=== PATIENT | male | born 1995 | race Caucasian/White ===

== ENCOUNTER 2019-01-11 20:02 | Emergency (ER) | payer OTHER ==
--- NOTE | 2019-01-11 20:18 | EDM.PDOC ---
ED HPI GENERAL MEDICAL PROBLEM - General Chief Complaint: Head Injury Stated Complaint: PT HURT HEAD Time Seen by Provider: 01/11/19 20:09 - History of Present Illness INITIAL COMMENTS - FREE TEXT/NARRATIVE: HISTORY AND PHYSICAL: History of present illness: Patient's 23-year-old male presents status post head injury in which he hit his frontal scalp sustained a laceration there is no loss consciousness no nausea no vomiting no neck pain or trauma concern he is up-to-date on his tetanus Review of systems: As per history of present illness and below otherwise all systems reviewed and negative. Past medical history: As per history of present illness and as reviewed below otherwise noncontributory. Surgical history: As per history of present illness and as reviewed below otherwise noncontributory. Social history: No reported history of drug or alcohol abuse. Family history: As per history of present illness and as reviewed below otherwise noncontributory. Physical exam: HEENT: Patient is approximately 2.5 cm keisha the laceration of his frontal scalp with no step-off no depression good hemostasis normocephalic, pupils reactive, negative for conjunctival pallor or scleral icterus, mucous membranes moist, throat clear, neck supple, nontender, trachea midline. Lungs: Clear to auscultation, breath sounds equal bilaterally, chest nontender. Heart: S1S2, regular, negative for clicks, rubs, or JVD. Abdomen: Soft, nondistended, nontender. Negative for masses or hepatosplenomegaly. Negative for costovertebral tenderness. Pelvis: Stable nontender. Genitourinary: Deferred. Rectal: Deferred. Extremities: Atraumatic, negative for cords or calf pain. Neurovascular unremarkable. Neuro: Awake, alert, oriented. Cranial nerves II through XII unremarkable. Cerebellum unremarkable. Motor and sensory unremarkable throughout. Exam nonfocal. Diagnostics: None Therapeutics: Patient was irrigated gaurav with 0.9 normal saline with a sepsis had his wound closed with stainless steel Fazal bacitracin was applied Impression: #1 minor head injury with scalp laceration Definitive disposition and diagnosis as appropriate pending reevaluation and review of above. headache Pain Score (Numeric/FACES): 2 - Related Data Allergies Allergy/AdvReac Type Severity Reaction Status Date / Time No Known Allergies Allergy Verified 01/11/19 20:10 Home Meds: Home Meds . [No Known Home Meds] 01/11/19 [History] ED ROS GENERAL - Review of Systems Review Of Systems: ROS reveals no pertinent complaints other than HPI. ED EXAM, HEAD INJURY - Physical Exam Exam: See Below (Dictation) Course - Vital Signs Last Recorded V/S: Last Vital Signs Temp 36.9 C 01/11/19 20:11 Pulse 86 01/11/19 20:11 Resp 14 01/11/19 20:11 BP 114/60 01/11/19 20:11 Pulse Ox 98 01/11/19 20:11 Departure - Departure Time of Disposition: 20:16 Disposition: Home, Self-Care 01 Condition: Good Clinical Impression: Minor head injury, Scalp laceration - Discharge Information Referrals: Jose Luis Bejarano MD [Primary Care Provider] - Additional Instructions: The following information is given to patients seen in the emergency department who are being discharged to home. This information is to outline your options for follow-up care. We provide all patients seen in our emergency department with a follow-up referral. The need for follow-up, as well as the timing and circumstances, are variable depending upon the specifics of your emergency department visit. If you don't have a primary care physician on staff, we will provide you with a referral. We always advise you to contact your personal physician following an emergency department visit to inform them of the circumstance of the visit and for follow-up with them and/or the need for any referrals to a consulting specialist. The emergency department will also refer you to a specialist when appropriate. This referral assures that you have the opportunity for followup care with a specialist. All of these measure are taken in an effort to provide you with optimal care, which includes your followup. Under all circumstances we always encourage you to contact your private physician who remains a resource for coordinating your care. When calling for followup care, please make the office aware that this follow-up is from your recent emergency room visit. If for any reason you are refused follow-up, please contact the [facility] emergency department at and asked to speak to the emergency department charge nurse. Wound care as discussed staple removal 10-14 days return as needed as discussed
[2019-01-11] MEDS ORDERED: Bacitracin Oint 1 GM U/D Packet TOP ONE (20:20)
== END 2019-01-11 20:34 | disposition home or self-care (01) ==
LOC: MW.ED 20:02
DX: S01.01XA Laceration without foreign body of scalp, initial encounter (principal); W22.8XXA Striking against or struck by other objects, initial encounter
CPT/HCPCS: 12001; 99282

== ENCOUNTER 2019-01-28 19:28 | Emergency (ER) | payer OTHER | END 2019-01-28 19:35 | disposition left against medical advice (07) | LOC: MW.ED 19:28 | DX: Z53.21 Procedure and treatment not carried out due to patient leaving prior to being seen by health care provider (principal) ==

== ENCOUNTER 2020-05-27 10:18 | Emergency (ER) | payer BC, OTHER ==
[2020-05-27] MEDS ORDERED: Ketorolac 15 MG/ML SDV IM ONE (10:47)
[2020-05-27] MEDS ORDERED: Amoxicillin/Clavulanate K 875-125 MG Tab PO ONE (10:48)
[2020-05-27] MEDS ORDERED: Benzocaine 20% Topical Spray UD MUCMEM ONE (10:51)
[2020-05-27] MEDS ORDERED: Lidocaine 2% Viscous Solution 15 ML Cup PO ONE (10:51)
--- NOTE | 2020-05-27 10:51 | EDM.PDOC ---
ED HPI GENERAL MEDICAL PROBLEM - General Chief Complaint: ENT Problem Stated Complaint: SWELLING/TOOTH PAIN Time Seen by Provider: 05/27/20 10:32 - History of Present Illness INITIAL COMMENTS - FREE TEXT/NARRATIVE: CHIEF COMPLAINT(S): Left tooth pain and jaw swelling HISTORY OF PRESENT ILLNESS: This is a 24-year-old man without any significant past medical history who comes to the emergency department with a chief complaint of left tooth pain and swelling. The patient states that he has a chipped tooth on the left inferior jaw which was tender. He states that over the last day he started noticed that his jaw and cheek started to swell. He denies any inability to open his jaw, trouble swallowing, throat pain, trouble breathing. He states that the pain was 8 out of 10 and that he tried Orajel which did not relieve it. He denies any radiation of this pain into his neck. He states that there is no relieving symptoms but that touching the tooth and the jaw seem to exacerbate the pain. He denies any fevers or chills. He denies any sore throat. REVIEW OF SYSTEMS: Constitutional: Denies fever, chills. Eyes: Denies eye pain Ears, Nose, Mouth, & Throat: Positive for tooth pain and jaw pain. Denies sore throat Skin:Denies a rash MSK: Positive for left calf pain neurological: Denies blurred vision headache, numbness, tingling, weakness PAST MEDICAL HISTORY: As per history of present illness and as reviewed below otherwise noncontributory. SURGICAL HISTORY: As per history of present illness and as reviewed below otherwise noncontributory. SOCIAL HISTORY: As per history of present illness and as reviewed below otherwise noncontributory. FAMILY HISTORY: As per history of present illness and as reviewed below otherwise noncontributory. EXAMINATION OF ORGAN SYSTEMS/BODY AREAS: Constitutional: Blood pressure was 132/94, heart rate 76, respiratory rate 16 with an oxygen saturation 98% on room air. Temperature 36.6 General: Overall well-appearing man who is in no acute distress. Psychiatric: Appropriate mood and affect. Eyes: No scleral icterus or conjunctival erythema ENMT: Moist mucous membranes. No pharyngeal erythema there is a dental carry in the left inferior molars in the posterior side. There is no obvious periapical abscess or gum erythema. There is tenderness to palpation along this tooth. Externally there is swelling in the buccal mucosa and tenderness to palpation a long the inferior jaw. There is no lymphadenopathy palpated. Uvula was midline. No stridor, trismus or drooling. Cardiovascular: Regular, rate, and rhythm. No gallops, murmurs, or rubs. Respiratory: Lungs clear to auscultation bilaterally. No wheezes, rales, or rhonchi. Skin: No lesions or abrasions. Neurological: Alert, GCS 15 MEDICAL DECISION MAKING AND COURSE IN THE ED WITH INTERPRETATION/REVIEW OF DIAGNOSTIC STUDIES: This is a 24-year-old man and without any significant past medical history who comes to the emergency department with dental pain who has evidence of dental caries with possible dental abscess versus swelling along the jaw and buccal mucosa secondary to inflammation from the dental carry. At this time I discussed with the patient that I could provide the patient with a Toradol shot here. We will provide the patient with Augmentin by mouth for antibiotics. I discussed that I be sending home home with antibiotic and that he needed to follow-up with dentistry this week. We did provide the patient with lidocaine balls for symptomatic relief. I also discussed with him that he could use [id number] Tylenol and Motrin and he could ice his jaw 20 minut es 4 times a day. He was amenable to discharge at this time and had no further questions. DISPOSITION: The patient was discharged home in stable condition. The patient will follow up with dentist this week CONDITION: Fair PROCEDURES: None FINAL IMPRESSION(S)/DIAGNOSES: 1. Acute dental abscess 2. Acute right jaw swelling likely secondary #1 Jaret Carr M.D. left lower tooth Pain Score (Numeric/FACES): 10 - Related Data Allergies Allergy/AdvReac Type Severity Reaction Status Date / Time No Known Allergies Allergy Verified 05/27/20 10:37 Home Meds: Home Meds Acetaminophen [Tylenol Extra Strength] 1,000 mg PO Q6HR #56 tablet 05/27/20 [Rx] Amoxicillin/Potassium Clav [Augmentin 875-125 Tablet] 1 each PO BID #14 tablet 05/27/20 [Rx] Ibuprofen 600 mg PO Q6HR #28 tablet 05/27/20 [Rx] Sertraline [Zoloft] 50 mg PO DAILY 05/27/20 [History] Past Medical History - Past Health History Medical/Surgical History: Denies Medical/Surgical History - Past Surgical History Other Musculoskeletal Surgeries/Procedures:: hx R hand splinted Social & Family History - Family History Family Medical History: No Pertinent Family History - Tobacco Use Tobacco Use Status *Q: Never Tobacco User - Recreational Drug Use Recreational Drug Use: No ED ROS GENERAL - Review of Systems Review Of Systems: See Below ED EXAM, GENERAL - Physical Exam Exam: See Below Course - Vital Signs Last Recorded V/S: Last Vital Signs Temp 36.6 C 05/27/20 10:35 Pulse 76 05/27/20 10:35 Resp 16 05/27/20 10:35 BP 132/94 H 05/27/20 10:35 Pulse Ox 98 05/27/20 10:35 - Orders/Labs/Meds Meds: Medications Discontinued Medications Generic Name Dose Route Start Last Admin Trade Name Freq PRN Reason Stop Dose Admin Amoxicillin/Clavulanate Potassium 1 tab 05/27/20 10:48 05/27/20 11:05 Augmentin 875 Mg/125 Mg PO 05/27/20 10:49 1 tab ONETIME ONE Administration Benzocaine 2 each 05/27/20 10:51 05/27/20 11:04 Hurricaine One 20% MUCMEM 05/27/20 10:52 2 each ONETIME ONE Administration Ketorolac Tromethamine 15 mg 05/27/20 10:47 05/27/20 11:05 Toradol IM 05/27/20 10:48 15 mg ONETIME ONE Administration Lidocaine HCl 15 ml 05/27/20 10:51 05/27/20 11:04 Xylocaine 2% Viscous PO 05/27/20 10:52 15 ml ONETIME ONE Administration Departure - Departure Time of Disposition: 10:49 Disposition: Home, Self-Care 01 Condition: Fair Clinical Impression: Dental caries, Dental abscess - Discharge Information *PRESCRIPTION DRUG MONITORING PROGRAM REVIEWED*: No *COPY OF PRESCRIPTION DRUG MONITORING REPORT IN PATIENT FLORECITA: No Prescriptions: Amoxicillin/Potassium Clav [Augmentin 875-125 Tablet] 1 each PO BID #14 tablet Ibuprofen 600 mg PO Q6HR #28 tablet Acetaminophen [Tylenol Extra Strength] 1,000 mg PO Q6HR #56 tablet Instructions: Dental Abscess, [id number] Referrals: Jose Luis Bejarano MD [Primary Care Provider] - Forms: ED Department Discharge Additional Instructions: Your evaluated today on an emergent basis. At this time I do believe you have a dental infection versus abscess. At this time I recommend use of Tylenol and Motrin as below. We will also provide you with some numbing dental balls that she can place on the affected area. Please use ice to the left side of the jaw 20 minutes 4 times a day. Please call on Friday to make an a dental appointment. If you have any new or worsening symptoms such as inability to open your jaw, worsening swelling, fever, trouble breathing return to the emergency department. Please use: Tylenol 500-1000mg every 6 hours (DO NOT TAKE MORE THAN 4000mg in 1 day) Ibuprofen 600mg every 6 hours (Take with food as it can cause ulcers, GI upset) Example schedule: 8:00 AM (Tylenol 500-1000mg) 11:00 AM (Ibuprofen 400mg) 2:00 PM (Tylenol 500-1000mg) 5:00 PM (Ibuprofen 400mg) The patient is informed of any results of their evaluation and diagnostic workup and all questions are answered. They are given discharge instructions and return precautions. The patient is stable for discharge. The patient states they understand and agree with the plan and that they will return if their symptoms get worse or if they have any new concerns. The following information is given to patients seen in the emergency department who are being discharged to home. This information is to outline your options for follow-up care. We provide all patients seen in our emergency department with a follow-up referral. The need for follow-up, as well as the timing and circumstances, are variable depending upon the specifics of your emergency department visit. If you don't have a primary care physician on staff, we will provide you with a referral. We always advise you to contact your personal physician following an emergency department visit to inform them of the circumstance of the visit and for follow-up with them and/or the need for any referrals to a consulting specialist. The emergency department will also refer you to a specialist when appropriate. This referral assures that you have the opportunity for follow-up care with a specialist. All of these measure are taken in an effort to provide you with optimal care, which includes your follow-up. Under all circumstances we always encourage you to contact your private physician who remains a resource for coordinating your care. When calling for follow-up care, please make the office aware that this follow-up is from your recent emergency room visit. If for any reason you are refused follow-up, please contact the [facility] Emergency Department at and asked to speak to the emergency department charge nurse. Sepsis Event Note (ED) - Evaluation Sepsis Screening Result: No Definite Risk - Focused Exam Vital Signs: Vital Signs Temp Pulse Resp BP Pulse Ox 05/27/20 10:35 36.6 C 76 16 132/94 H 98
== END 2020-05-27 11:09 | disposition home or self-care (01) ==
LOC: MW.ED 10:18
DX: K04.7 Periapical abscess without sinus (principal); K02.9 Dental caries, unspecified; M79.662 Pain in left lower leg
CPT/HCPCS: 96372; 99282; A9270; J1885; 99283

== ENCOUNTER 2021-11-12 06:33 | Day surgery (SDC) | payer BC ==
[~2021-11-12 06:33] MED LIST: Lactated Ringers 1,000 ML IV SCH
[2021-11-12] MEDS ORDERED: fentaNYL 100 MCG/2 ML SDV ONE (07:17)
[2021-11-12] MEDS ORDERED: Lidocaine 2% 5 ML SDV ONE (07:17)
[2021-11-12] MEDS ORDERED: Propofol 200 MG/20 ML SDV ONE ×2 (07:17→08:13)
[2021-11-12] MEDS ORDERED: Lactated Ringers 1,000 ML IV SCH (08:45)
== END 2021-11-12 09:10 | disposition home or self-care (01) ==
LOC: MW.SDS 06:33
PROVIDERS: ATTEND Surgery
DX: K59.09 Other constipation (principal); F41.9 Anxiety disorder, unspecified; F17.210 Nicotine dependence, cigarettes, uncomplicated; Z79.899 Other long term (current) drug therapy
CPT/HCPCS: 45380; J2704; J3010; J7120; 00811